=== PATIENT | male | born 1995 | race Two or more races ===

== ENCOUNTER 2020-05-12 11:00 | Emergency (ER) | payer OTHER ==
[~2020-05-12] VITALS: Ht 175.3 cm; Wt 108.9 kg
[2020-05-12 11:55] VITALS: BP 131/89
[2020-05-12] MEDS ORDERED: IBUPROFEN 800 MG TAB PO ONE (13:15)
== END 2020-05-12 15:19 | disposition home or self-care (01) ==
LOC: ER 11:00
DX: S06.0X0A Concussion without loss of consciousness, initial encounter (principal); S16.1XXA Strain of muscle, fascia and tendon at neck level, initial encounter; R51 Headache; V87.8XXA Person injured in other specified noncollision transport accidents involving motor vehicle (traffic), initial encounter; Y93.89 Activity, other specified; Y92.89 Other specified places as the place of occurrence of the external cause; Y99.0 Civilian activity done for income or pay
CPT/HCPCS: 70450; 72125